=== PATIENT | female | born 1985 | race Two or more races ===

== ENCOUNTER 2016-11-19 20:54 | Emergency (ER) | payer OTHER ==
[~2016-11-19] VITALS: Ht 152.4 cm; Wt 65.3 kg
[2016-11-19] MEDS ORDERED: NALOXONE PREFILLED SYRINGE 2 MG/2 ML SYRINGE ONE (20:55)
--- NOTE | 2016-11-19 20:56 | NUR ---
To bed 4 a 31 yo female dropped off by friends for "heroin overdose." Patient is nonresponsive, hypoventilating. Secured airway. Dr Barbour at bedside. Started a saline lock on left hand g18.
--- NOTE | 2016-11-19 21:00 | NUR ---
Narcan 2mg IVP given to which patient responded very well. Woke up and started getting and talking. When asked, what was the last time she remembered, She said "I was in a car having heroin with my ex boyfriend." Reorientation done. Safety measures initiated. VSS. Will continue to monitor.
--- NOTE | 2016-11-19 21:22 | NUR ---
xr at bedside.
[2016-11-19] MEDS ORDERED: NALOXONE HCL 0.4 MG/ML AMPUL IV ONE (21:30)
--- NOTE | 2016-11-19 22:24 | NUR ---
IV removed. Catheter intact and site benign. Pressure and 4x4 applied to site. No bleeding noted. Patient discharged to home in stable condition. Written and verbal after care instructions given. Patient verbalizes understanding of instruction. Patient is ambulatory with steady gait.
[2016-11-19 22:26] VITALS: BP 120/78
== END 2016-11-19 22:26 | disposition home or self-care (01) ==
LOC: ER 20:55
DX: T40.1X1A Poisoning by heroin, accidental (unintentional), initial encounter (principal); R91.8 Other nonspecific abnormal finding of lung field; Y92.89 Other specified places as the place of occurrence of the external cause
CPT/HCPCS: 71010; 96374; 99284; A4606; J2310; Z7610